=== PATIENT | female | born 1980 | race Caucasian/White ===

== ENCOUNTER 2020-09-28 05:41 | Emergency (ER) | payer OTHER ==
[~2020-09-28] VITALS: Ht 149.9 cm; Wt 62.0 kg
--- NOTE | 2020-09-28 06:00 | NUR ---
PT C/O OF RT FLANK PAIN. REPORTS BEING DIAGNOSED WITH 3 KIDNEY STONES ON August. PT APPEARS TO BE IN A LOT OF PAIN AND DISTRESS. PT IS ALSO NAUSCIOUS AND VOMITTING. DENIES FEVER AND DIARRHEA. ATTACHED TO MONITORS. VSS. BED IN LOW POSITION, RAILS ENGAGED. CALL LIGHT WITHIN REACH. AT BEDSIDE.
[2020-09-28] MEDS ORDERED: ONDANSETRON 2MG/ML, 2ML ONE ×2 (06:11→08:05)
[2020-09-28] MEDS ORDERED: HYDROmorphone 1 MG/ML, 1ML INJ ONE ×2 (06:11→08:05)
[2020-09-28] MEDS ORDERED: SODIUM CHLORIDE 0.9% 1,000ML IVBOLUS ONE (06:30)
[2020-09-28] MEDS ORDERED: ONDANSETRON 2MG/ML, 2ML IVPush ONE ×2 (06:30→08:00)
[2020-09-28] MEDS ORDERED: HYDROmorphone 1 MG/ML, 1ML INJ IV ONE ×2 (06:30→08:00)
[2020-09-28 06:37] LABS: BASOPHILS % (AUTO) 1 % (0-1); EOSINOPHILS % (AUTO) 2 % (1-7); LYMPHOCYTES % (AUTO) 29 % (22-44); MEAN CORPUSCULAR HEMOGLOBIN 32.4 pg (27.0-34.8); MEAN CORPUSCULAR HGB CONC 34.2 g/dL (32.4-35.8); MEAN PLATELET VOLUME 7.6 fL (7.4-10.4); MONOCYTES % (AUTO) 8 % (2-9); NEUTROPHILS % (AUTO) 60 % (42-75); PLATELET COUNT 451 x10^3/uL (130-400); RED BLOOD COUNT 4.12 x10^6/uL (3.82-5.3); RED CELL DISTRIBUTION WIDTH 13.4 % (9.6-15.2)
[2020-09-28 06:37] LABS: MICROSCOPIC INDICATED
[2020-09-28 06:47] LABS: ALANINE AMINOTRANSFERASE 71 U/L (12-78); ALBUMIN 3.8 g/dL (3.4-5.0); ANION GAP 6 mmol/L (5-15); CALCIUM 10.8 mg/dL (8.5-10.1); CHLORIDE 108 mmol/L (98-107); CREATININE 0.81 mg/dL (0.55-1.02)
[2020-09-28 06:52] LABS: ALKALINE PHOSPHATASE 110 U/L (45-117); BILIRUBIN,TOTAL 0.4 mg/dL (0.2-1.0); TOTAL PROTEIN 7.9 g/dL (6.4-8.2)
--- NOTE | 2020-09-28 06:54 | NUR ---
GAVE REPORT MARIBELL RAZO. TRANSFER OF CARE
--- NOTE | 2020-09-28 06:54 | NUR ---
Patient is resting comfortably in bed. Bed in lowest, rails engaged, call light on lap. Vital Signs within normal limits. WCTM.
--- NOTE | 2020-09-28 08:10 | NUR ---
MEDICATED PT PER EMAR
[2020-09-28] MEDS ORDERED: LORazepam 2 MG/ML, 1ML IVPush ONE (08:30)
[2020-09-28] MEDS ORDERED: LORazepam 2 MG/ML, 1ML ONE (08:31)
--- NOTE | 2020-09-28 08:39 | NUR ---
PT IN CONSIDERABLE PAIN. PT HAS BEEN MEDICATED FOR PAIN. ORDERS IN FOR ANXIETY MEDS WHICH HAVE BEEN ADMINITSTERED. UROLOGY HAS BEEN PAGED FOR CONSULT ON PT. URINE SAMPLE COLLECTED FROM UROSTOMY TUBE AND SENT TO LAB. PT ATTTEMPTING TO LAY DOWN IN GURNEY SHE IS SITTING ON HER CALVES, CRAWLING ON GURNEY CURRENTLY. WILL CONTINUE TO MONITOR. PT PLACED BACK ON VITALS MONITORS.
--- NOTE | 2020-09-28 08:42 | NUR ---
tank charger- micro called to verify urine sample collection. Discussed with Pola rn, unsure since sample collected during noc shift. RN aware need to recollect urine sample.
--- NOTE | 2020-09-28 08:53 | NUR ---
PT GOING TO IR AT THIS TIME.
[2020-09-28] MEDS ORDERED: MEDICINAL MARIJUANA INH (09:05)
--- NOTE | 2020-09-28 09:05 | NUR ---
PT HAS NOT GONE TO IR SHE TOLD THE IR TECH SHE HAD PIZZA AT 0800. THIS RN HAS NOT SEEN PT EATING ANY PIZZA IN ROOM. PT LEFT AROUND 0720. PT IS CURRENTLY RESTING IN BED CALMLY. WILL CONTINUE TO MONITOR. IR TECH IS GOING TO SPEAK WITH UROLOGIST TO DETERMINE WHAT THEY ARE GOING TO DO.
--- NOTE | 2020-09-28 10:00 | NUR ---
PT REMAINS RESTING CALMLY IN BED AT THIS TIME. WILL CONTINUE TO MONITOR.
[2020-09-28 10:18] LABS: MICROSCOPIC INDICATED
[2020-09-28] MEDS ORDERED: MIDAZOLAM 1 MG/ML, 5ML ONE (10:39)
[2020-09-28] MEDS ORDERED: FLUMAZENIL 0.1 MG/1 ML, 5ML ONE (10:39)
[2020-09-28] MEDS ORDERED: FENTANYL PF 100 MCG/2ML ONE (10:39)
[2020-09-28] MEDS ORDERED: NALOXONE 1 MG/ML, 2ML ONE (10:39)
--- NOTE | 2020-09-28 10:42 | NUR ---
PT IN IR AT THIS TIME.
[2020-09-28] MEDS ORDERED: LIDOCAINE 1%, 10ML ONE (10:54)
--- NOTE | 2020-09-28 11:13 | NUR ---
PT RETURNING FROM IR
--- NOTE | 2020-09-28 12:21 | NUR ---
PT RESTING CALMLY IN BED. PT MOVING AROUND A LITTLE IN BED. PT IS STILL DROWSY. WILL CONTINUE TO MONITOR.
--- NOTE | 2020-09-28 13:19 | NUR ---
PT RESTING IN BED. REMAINS DROWSY. PT VITALS STABLE, SEE CHARTED. PT AROUSABLE TO PAINFUL STIMULI. WILL CONTINUE TO MONITOR.
--- NOTE | 2020-09-28 13:40 | NUR ---
PT UP IN ROOM, WALKING AROUND BED, TRYING TO UNHOOK HERSELF. PT IS A&OX4, STEADY ON FEET. PT STATED HER IS COMING TO PICK HER UP. IV REMOVED. PT GETTING DRESSED AT THIS TIME. AWAITING TO ARRIVE TO HOSPITAL.
[2020-09-28 14:20] VITALS: BP 102/66
== END 2020-09-28 14:22 | disposition home or self-care (01) ==
LOC: ED 11:21
DX: Z93.6 Other artificial openings of urinary tract status (principal); R10.9 Unspecified abdominal pain; F17.200 Nicotine dependence, unspecified, uncomplicated
CPT/HCPCS: 36415; 50435; 74176; 80053; 81001; 83690; 84703; 85025; 87086; 96374; 96375; 96376; 99156; 99157; 99285; C1729; C1769; J1170; J2060; J2250; J2405; J3010; J3490; J7030; J2310